=== PATIENT | male | born 1955 | race Caucasian/White ===

== ENCOUNTER 2016-09-01 15:46 | Emergency (ER) | payer OTHER ==
[~2016-09-01] VITALS: Ht 193 cm; Wt 99.8 kg
[2016-09-01] MEDS ORDERED: IV NORMAL SALINE 1,000ML 1,000 ML IV ONE (16:00)
--- NOTE | 2016-09-01 16:27 | EKG ---
[address] [address] Test Date: 2016-09-01 Test Time: 16:25:51 Pat Name: WINSOME SARAVIA Department: Room: Gender: M [employer]: : 1955 Requested By: ZACK VALENZUELA Order Number: [id number] Reading MD: Measurements Intervals [place] Rate: 74 P: 62 NV: 174 QRS: 62 QRSD: 90 T: 52 QT: 368 QTc: 409 Interpretive Statements SINUS RHYTHM OTHERWISE NORMAL ECG RI6.01 Unconfirmed report No previous ECG available for comparison
--- NOTE | 2016-09-01 16:27 | RAD ---
AP portable chest radiograph 09/01/2016 Clinical History: Altered mental status. 2 AP portable erect digital radiographs of the chest was obtained. No previous studies are available for comparison. The cardiac silhouette is normal in size. The thoracic aorta is mildly tortuous. Atherosclerotic calcification of the thoracic aorta is seen. No acute pulmonary infiltrate is noted. No pneumothorax or pleural effusion is seen. Degenerative changes are seen involving the thoracic spine. Impression: No acute abnormality is seen.
--- NOTE | 2016-09-01 16:28 | RAD ---
EXAM: CT head without contrast. HISTORY: Altered mental status. TECHNIQUE: Computed tomography of the head was performed without intravenous contrast. COMPARISON: None. FINDINGS: There is no intracranial hemorrhage. Mathew-white differentiation is preserved. Prominence of the lateral ventricles and hemispheric sulci indicate mild to moderate atrophy. The visualized paranasal sinuses appear clear. The orbits are unremarkable. The temporal bones are unremarkable. The calvarium reveals no suspicious lesions. IMPRESSION: 1. No acute intracranial findings. 2. Mild/moderate atrophy. *One or more of the following individualized dose reduction techniques were utilized for this examination: 1. Automated exposure control. 2. Adjustment of the mA and/or kV according to patient size. 3. Use of iterative reconstruction technique.
--- NOTE | 2016-09-01 16:34 | ED.ADGEN ---
Past History Past Medical History: Anxiety, Diabetes, Hypertension Past Surgical History: Other Alcohol Use: Occasionally Drug Use: Marijuana Adult General HPI HPI Patient is a 60-year-old male brought to emergency department for confusion. Patient has an unknown baseline of mental physical disability but per his sister has become worse over the last few weeks and in fact she has been unable to find him for the last 1 week. 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 The staff there knows him and stated that he was not acting normally. Patient tells me he cannot recall last time that he had any food to eat. He denies any specific complaints or recent illness. Review of Systems Review of Systems Constitutional: Denies fever or chills [] Eyes: Denies change in visual acuity, redness, or eye pain [] HENT: Denies nasal congestion or sore throat [] Respiratory: Denies cough or shortness of breath [] Cardiovascular: No additional information not addressed in HPI [] GI: Denies abdominal pain, nausea, vomiting, bloody stools or diarrhea [] : Denies dysuria or hematuria [] Musculoskeletal: Denies back pain or joint pain [] Integument: Denies rash or skin lesions [] Neurologic: Denies headache, focal weakness or sensory changes [] Endocrine: Denies polyuria or polydipsia [] Current Medications Current Medications Current Medications Medications (Trade) Dose Ordered Sig/Brittney Start Time Stop Time Status Last Admin Dose Admin Sodium Chloride (Iv Sodium Chloride 0.9% 1,000ml) 1,000 ml @ 1,000 mls/hr 1X ONCE 09/01/16 16:00 09/01/16 17:11 DC 09/01/16 17:00 1,000 MLS/HR Allergies Allergies Allergies Coded Allergies Type Severity Reaction Last Updated Verified No Known Drug Allergies 09/01/16 No Physical Exam Physical Exam Constitutional: Well developed, well nourished, no acute distress, non-toxic appearance. [] HENT: Normocephalic, atraumatic, bilateral external ears normal, oropharynx moist, no oral exudates, nose normal. [] Eyes: PERRLA, EOMI, conjunctiva normal, no discharge. [] Neck: Normal range of motion, no tenderness, supple, no stridor. [] Cardiovascular:Heart rate regular rhythm, no murmur [] Lungs & Thorax: Bilateral breath sounds clear to auscultation [] Abdomen: Bowel sounds normal, soft, no tenderness, no masses, no pulsatile masses. [] Skin: Warm, dry, no erythema, no rash. [] Back: No tenderness, no CVA tenderness. [] Extremities: No tenderness, no cyanosis, no clubbing, ROM intact, no edema. [] Neurologic: Alert and oriented X 2, normal motor function, normal sensory function, no focal deficits noted. [] Psychologic: Affect normal, judgement normal, mood normal. [] Current Patient Data Vital Signs Vital Signs Date Time Temp Pulse Resp B/P Pulse Ox O2 Delivery O2 Flow Rate FiO2 09/01/16 15:50 98.1 82 22 96 Room Air Lab Results Laboratory Tests Test 09/01/16 16:40 White Blood Count 8.1x10^3/uL (4.0-11.0) Red Blood Count 5.25x10^6/uL (4.30-5.70) Hemoglobin 16.4g/dL (13.0-17.5) Hematocrit 47.5% (39.0-53.0) Mean Corpuscular Volume 91fL (79-100) Mean Corpuscular Hemoglobin 31pg (25-35) Mean Corpuscular Hemoglobin Concent 34g/dL (31-37) Red Cell Distribution Width 13.5% (11.5-14.5) Platelet Count 156x10^3/uL (140-400) Neutrophils (%) (Auto) 75% (31-73) H Lymphocytes (%) (Auto) 18% (24-48) L Monocytes (%) (Auto) 5% (0-9) Eosinophils (%) (Auto) 2% (0-3) Basophils (%) (Auto) 1% (0-3) Neutrophils # (Auto) 6.1x10^3uL (1.8-7.7) Lymphocytes # (Auto) 1.5x10^3/uL (1.0-4.8) Monocytes # (Auto) 0.4x10^3/uL (0.0-1.1) Eosinophils # (Auto) 0.1x10^3/uL (0.0-0.7) Basophils # (Auto) 0.1x10^3/uL (0.0-0.2) Prothrombin Time 10.2SEC (9.4-11.4) Prothrombin Time INR 1.0 (0.9-1.1) PTT 25SEC (23-33) Urine Collection Type Unknown Urine Color Yellow Urine Clarity Clear Urine pH 7.0 Urine Specific [place] 1.020 Urine Protein Neg (NEG-TRACE) Urine Glucose (UA) Negmg/dL (NEG) Urine Ketones (Stick) Negmg/dL (NEG) Urine Blood Mod (NEG) Urine Nitrite Neg (NEG) Urine Bilirubin Neg (NEG) Urine Urobilinogen Dipstick 1mg/dL (0.2 mg/dL) Urine Leukocyte Esterase Neg (NEG) Urine RBC 11-20/HPF (0-2) Urine WBC Rare/HPF (0-4) Urine Squamous Epithelial Cells None/LPF Urine Bacteria 0/HPF (0-FEW) Urine Mucus Mod/LPF Sodium Level 138mmol/L (136-145) Potassium Level 3.8mmol/L (3.5-5.1) Chloride Level 102mmol/L (98-107) Carbon Dioxide Level 27mmol/L (21-32) Anion Gap 9 (6-14) Blood Urea Nitrogen 22mg/dL (8-26) Creatinine 1.0mg/dL (0.7-1.3) Estimated GFR (Cockcroft-Gault) 75.5 BUN/Creatinine Ratio 22 (6-20) H Glucose Level 113mg/dL (70-99) H Lactic Acid Level 0.9mmol/L (0.4-2.0) Calcium Level 9.1mg/dL (8.5-10.1) Magnesium Level 1.9mg/dL (1.8-2.4) Total Bilirubin 0.4mg/dL (0.2-1.0) Aspartate Amino Transferase (AST) 13U/L (15-37) L Alanine Aminotransferase (ALT) 19U/L (16-63) Alkaline Phosphatase 85U/L (46-116) Troponin I Quantitative < 0.017ng/mL (0-0.055) MQ-Nyv-Q-Type Natriuretic Peptide 118pg/mL (0-124) Total Protein 7.4g/dL (6.4-8.2) Albumin 3.8g/dL (3.4-5.0) Albumin/Globulin Ratio 1.1 (1.0-1.7) Lipase 106U/L (73-393) Urine Opiates Screen Neg (NEG) Urine Methadone Screen Neg (NEG) Urine Barbiturates Neg (NEG) Urine Phencyclidine Screen Neg (NEG) Urine Amphetamine/Methamphetamine Neg (NEG) Urine Benzodiazepines Screen Neg (NEG) Urine Cocaine Screen Neg (NEG) Urine Cannabinoids Screen Neg (NEG) Ethyl Alcohol Level < 10mg/dL (0-10) Urine Ethyl Alcohol Neg (NEG) EKG EKG EKG interpreted by me, normal sinus rhythm, 74 beats for minute, normal axis, no ST segment elevation. [] Radiology/Procedures Radiology/Procedures EXAM: CT head without contrast. HISTORY: Altered mental status. TECHNIQUE: Computed tomography of the head was performed without intravenous contrast. COMPARISON: None. FINDINGS: There is no intracranial hemorrhage. Mathew-white differentiation is preserved. Prominence of the lateral ventricles and hemispheric sulci indicate mild to moderate atrophy. The visualized paranasal sinuses appear clear. The orbits are unremarkable. The temporal bones are unremarkable. The calvarium reveals no suspicious lesions. IMPRESSION: 1. No acute intracranial findings. 2. Mild/moderate atrophy. *One or more of the following individualized dose reduction techniques were utilized for this examination: 1. Automated exposure control. 2. Adjustment of the mA and/or kV according to patient size. 3. Use of iterative reconstruction technique. DICTATED AND SIGNED BY: YG TAN MD DATE: 09/01/16 162 CC: ZACK VALENZUELA MD; PCP,NO ~AP portable chest radiograph 09/01/2016 Clinical History: Altered mental status. 2 AP portable erect digital radiographs of the chest was obtained. No previous studies are available for comparison. The cardiac silhouette is normal in size. The thoracic aorta is mildly tortuous. Atherosclerotic calcification of the thoracic aorta is seen. No acute pulmonary infiltrate is noted. No pneumothorax or pleural effusion is seen. Degenerative changes are seen involving the thoracic spine. Impression: No acute abnormality is seen. DICTATED AND SIGNED BY: JANETT FELDMAN MD DATE: 09/01/16 162 CC: ZACK VALENZUELA MD; PCP,NO ~ [] Course & Med Decision Making Course & Med Decision Making Pertinent Labs and Imaging studies reviewed. (See chart for details) The patient's mental status has improved greatly with a little bit IV fluids and some food. His family is here and notes that he has improved as well. He is at his baseline at this time. His workup is very reassuring. He is going ago by Dr. polanco office for morning and restart his medications. They will bring him back to emergency department sooner if he develops any new or worsening symptoms. [] Final Impression Final Impression Confusion [] Problems: Dragon Disclaimer Dragon Disclaimer This electronic medical record was generated, in whole or in part, using a voice recognition dictation system. ZACK VALENZUELA MD Sep 01, 2016 16:34
[2016-09-01 17:05] LABS: BASO # 0.1 x10^3/uL (0.0-0.2); BASO % 1 % (0-3); EOS # 0.1 x10^3/uL (0.0-0.7); EOS % 2 % (0-3); HEMATOCRIT 47.5 % (39.0-53.0); HEMOGLOBIN 16.4 g/dL (13.0-17.5); LYMPH # 1.5 x10^3/uL (1.0-4.8); LYMPH % 18 % (24-48); MEAN CORPUSCULAR HEMOGLOBIN 31 pg (25-35); MEAN CORPUSCULAR HGB CONC 34 g/dL (31-37); MEAN CORPUSCULAR VOLUME 91 fL (79-100); MONO # 0.4 x10^3/uL (0.0-1.1); MONO % 5 % (0-9); NEUT # 6.1 x10^3uL (1.8-7.7); NEUT % 75 % (31-73); PLATELET COUNT 156 x10^3/uL (140-400); RED BLOOD COUNT 5.25 x10^6/uL (4.30-5.70); RED CELL DISTRIBUTION WIDTH 13.5 % (11.5-14.5); WHITE BLOOD COUNT 8.1 x10^3/uL (4.0-11.0)
[2016-09-01 17:15] LABS: AMPHETAMINE/METHAMPHETAMINE NEG (NEG); BARBITURATES NEG (NEG); BENZODIAZEPINES NEG (NEG); CANNABINOIDS NEG (NEG); COCAINE NEG (NEG); METHADONE NEG (NEG); OPIATES NEG (NEG); PHENCYCLIDINE NEG (NEG)
[2016-09-01 17:22] LABS: BILIRUBIN,URINE NEG (NEG); CLARITY,URINE CLEAR; COLOR,URINE YELLOW; GLUCOSE,URINE NEG (NEG); NITRITE,URINE NEG (NEG); UROBILINOGEN,URINE 1 mg/dL (0.2 mg/dL); WBC,URINE RARE /HPF (0-4)
[2016-09-01 17:23] LABS: BACTERIA,URINE 0 /HPF (0-FEW)
[2016-09-01 17:24] LABS: ALBUMIN 3.8 g/dL (3.4-5.0); ALBUMIN/GLOBULIN RATIO 1.1 (1.0-1.7); CALCIUM 9.1 mg/dL (8.5-10.1); GFR 75.5; MAGNESIUM 1.9 mg/dL (1.8-2.4); POTASSIUM 3.8 mmol/L (3.5-5.1); TOTAL BILIRUBIN 0.4 mg/dL (0.2-1.0); TOTAL PROTEIN 7.4 g/dL (6.4-8.2)
[2016-09-01 18:41] VITALS: BP 168/102
[2016-09-02] MEDS ORDERED: CLON1TAB3 PO (17:18)
[2016-09-02] MEDS ORDERED: TRAZ50TA15 PO (17:18)
[2016-09-02] MEDS ORDERED: CITA20TA9 PO (17:18)
[2016-09-04] MEDS ORDERED: ACET325T9 PO (10:56)
[2016-09-04] MEDS ORDERED: CLON0.1T12 PO (10:57)
[2016-09-04] MEDS ORDERED: ATOR10TA60 PO (10:57)
[2016-09-04] MEDS ORDERED: DONE5TAB7 PO (10:58)
[2016-09-04] MEDS ORDERED: DONE10TA7 PO (11:03)
[2016-09-04] MEDS ORDERED: DULO30CA2 PO (11:04)
[2016-09-04] MEDS ORDERED: DULO60CA6 PO (11:05)
[2016-09-04] MEDS ORDERED: MAG30ORA2 PO (11:06)
[2016-09-04] MEDS ORDERED: MAGN2400 PO (11:07)
[2016-09-04] MEDS ORDERED: METH29OI TP (11:08)
[2016-09-04] MEDS ORDERED: NICO1PAT21 TP (11:09)
[2016-09-04] MEDS ORDERED: PNV1TABL78 PO (11:12)
[2016-09-04] MEDS ORDERED: QUET50TA5 PO (11:13)
[2016-09-04] MEDS ORDERED: QUET25TA5 PO (11:13)
[2016-09-06] MEDS ORDERED: PANT40TA3 PO (10:15)
== END 2016-09-01 18:42 | disposition home or self-care (01) ==
LOC: ER 15:46
DX: R41.0 Disorientation, unspecified (principal); I10 Essential (primary) hypertension; E11.9 Type 2 diabetes mellitus without complications; F41.9 Anxiety disorder, unspecified; F12.10 Cannabis abuse, uncomplicated
CPT/HCPCS: 36415; 70450; 71010; 80053; 80305; 80320; 81001; 83605; 83690; 83735; 83880; 84484; 85027; 85610; 85730; 93005; 96360; G0480; G0481; 99285-25; J7030